=== PATIENT | male | born 1965 | race Native Hawaiian/Other Pacific Islander ===

== ENCOUNTER 2021-09-26 11:39 | Emergency (ER) | payer OTHER ==
[~2021-09-26] VITALS: Ht 188 cm; Wt 163.3 kg
[2021-09-26 12:26] LABS: PLATELET COUNT 193 K/uL (142-355)
[2021-09-26 18:53] VITALS: BP 150/73; TEMP 99.2
== END 2021-09-26 18:54 | disposition short-term general hospital (02) ==
LOC: ED 11:39
PROVIDERS: Emergency Medicine
DX: K74.69 Other cirrhosis of liver (principal); K76.6 Portal hypertension; Z11.52 Encounter for screening for COVID-19
CPT/HCPCS: 80053; 81000; 83880; 84484; 85027; 85610; 87635; 93005; 99284; Q9963; U0003

== ENCOUNTER 2022-01-11 16:24 | Outpatient (CLI) | payer OTHER ==
[2022-01-11 16:32] LABS: POTASSIUM 4.4 mmol/L (3.6-5.2)
== END 2022-01-11 19:24 | disposition home or self-care (01) ==
LOC: LAB 16:24
PROVIDERS: ATTEND Nurse Practitioner Family
DX: E87.5 Hyperkalemia (principal)
CPT/HCPCS: 80053